=== PATIENT | female | born 1950 ===

== ENCOUNTER 2025-06-06 10:18 | Outpatient (AMB) | payer MEDICARE, SELFPAY ==
[2025-06-06 10:30] VITALS: BP 118/60; PULSE 74; O2SAT 98
--- NOTE | 2025-06-06 10:30 | A.OFFVIS_ITS ---
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: No Accompanied by: Spouse Allergies No Known Allergies Allergy (Verified 06/06/25 10:30) Medication List - Last Reconciled 06/18/25 by Mariana Duval MD alendronate 70 mg PO QWEEK apixaban (Eliquis) 5 mg PO BID cholecalciferol (vitamin D3) 25 mcg PO DAILY digoxin 125 mcg PO DAILY diltiazem HCl ER (Tiadylt ER) 300 mg PO DAILY fluticasone propionate 50 mcg/actuation 1 spray intranasal BID PRN mecobalamin (vitamin B12) 1,000 mcg PO DAILY nitroglycerin 0.4 mg sublingual Q5M PRN nystatin (Nystop) topical TID rosuvastatin 10 mg PO BEDTIME sertraline 100 mg PO DAILY HPI Comments Details: 74y/o female comes for evaluation of tremors and leg weakness. Tremors- started 1 year ago , bilateral hands , more at rest posture.stress worsens the tremors. no change in voice , no head tremors Leg weakness- progressively since 2018 - she was in a cruise and had difficulty walking , in the hospital diagnosed with Atrial fibrillation. she has lumbar spinal stenosis - surgery was in 2019 prior to COVID. she has numbness in her feet.EMG - 2023 - inconclusive because of leg swelling she also ahs chronic lymphedema in her legs . [facility] Medical History (Updated 06/18/25 @ 10:23 by Mariana Duval MD) Coarse tremors H/O coronary angiogram UTI (urinary tract infection) due to Enterococcus Urge incontinence Thrombocytopathia Subclinical hyperthyroidism Spinal stenosis Sacroiliac pain Shingles Right knee pain Prediabetes Postmenopausal vaginal bleeding Orthostatic hypotension Osteopenia HILDA (obstructive sleep apnea) Obesity, class 1 Lichen planus Hypercholesteremia GERD (gastroesophageal reflux disease) Fall at home Dyspnea on exertion Diastolic heart failure Depressive disorder COVID Claudication CKD (chronic kidney disease) Cellulitis Benign hypertension Afib Surgical History Hx of laparoscopic gastric banding Hx of cholecystectomy History of hysteroscopy History of knee replacement S/P cervical disc replacement Family History Mother CHF (congestive heart failure) Heart disease History of heart attack HTN (hypertension) Father Cancer, colon History of heart attack Heart disease Social History Alcohol intake: current Patient Tobacco Use Status: Never used Tobacco Physical Exam Vital Signs: Last Vital Signs Pulse 74 06/06/25 10:30 BP 118/60 06/06/25 10:30 Pulse Ox 98 06/06/25 10:30 Oxygen Delivery Method Room Air 06/06/25 10:30 Const General: cooperative, comfortable and no acute distress Nutritional Appearance: obese Orientation/consciousness: patient oriented x3 Eyes Pupils: Equal, round and reactive pupils present Neuro Other: vandana LE swelling ANtalgic gait intremittent vandana postural tremors and action tremor s Mild decreased FFM and foot taps General: patient oriented x3, tone normal, moves all extremities and no focal motor deficits Cranial nerves: Yes Facial sensation intact/muscles of mastication intact, Yes Equal, round and reactive pupils present, Yes Bilaterally intact EOM present, Yes Nystagmus not present, Yes Normal facial strength present, Yes Midline tongue present, Yes Symmetric palate elevation present and Yes Ability to bilaterally elevate shoulders present Cognition (Neuro): normal cognition Gait exam (Neuro): Antalgic gait present Motor exam (neuro): 5/5 motor strength present throughout Deep tendon reflexes (DTR's): Right triceps reflex intensity grade: 1+, Left triceps reflex intensity grade: 1+, Rt Biceps (C5, C6): 1+, Left biceps reflex intensity grade: 1+, Right brachioradialis reflex intensity grade: 1+, Left brachioradialis reflex intensity grade: 1+, Right patellar reflex intensity grade: 1+ and Left patellar reflex intensity grade: 1+ Coordination: [id number] test normal Assessment & Plan Assessment & Plan (1) Coarse tremors: Comment: Intremittent , exaggerated physiological tremors Code(s): G25.2 - Other specified forms of tremor Category: Medical Plan No evidence of Parkinsons on todays eval No need for medications I will follow her up clincially EMG rpeort form [facility] for rveiew. Coding Level of Care Code New Pt Level 4 (02921) Diagnoses Coarse tremors G25.2
--- OUTSIDE RECORDS SUMMARY | 2025-06-06 10:56 | XMS_ITS | Clinical Summary ---
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 Name Role Phone Unavailable Primary Care Provider Unavailabl e Social History Tobacco Use Types Packs/Day Years Used Date Smoking Tobacco: Never Assessed Comments Unknown Sex and Gender Information Value Date Recorded Sex Assigned at Not on file Legal Sex Female 2:52 PM EST Gender Identity Not on file Sexual Orientation Not on file Plan of Treatment Health Maintenance Due Date Last Done Comments DTaP,Tdap,and Td Vaccines (1 - Tdap) 1967 Pneumococcal Vaccine: 50+ Ye ars (1 of 1 - PCV) 1998 Zoster Vaccines (1 of 2) 1998 RSV Immunization Adult Patie nts (1 - 1-dose 75+ series) 2023 COVID-19 Vaccine (1 - 2023-2 5 season) 2024 Falls Risk Assessment 09/21/2024 Hepatitis C Screening 09/21/2024 Osteoporosis Screening (Bone Density Screening) 09/21/2024 Social Influencers of Health Screening 09/21/2024 Depression Screening 11/01/2024 Influenza Vaccine (#1) 2025 HIB Vaccines Aged Out No longer eligi ble based on patient's age to complete this topic HPV Vaccines Aged Out No longer eligi ble based on patient's age to complete this topic Hepatitis A Vaccines Aged Out No long er eligible based on patient's age to complete this topic Hepatitis B Vaccines Aged Out No long er eligible based on patient's age to complete this topic IPV Vaccines Aged Out No longer eligi ble based on patient's age to complete this topic MMR Vaccines Aged Out No longer eligi ble based on patient's age to complete this topic Meningococcal ACWY Vaccine Aged Out N o longer eligible based on patient's age to complete this topic Meningococcal B Vaccine Aged Out No l onger eligible based on patient's age to complete this topic RSV Immunization Patients Un starr 20 months Aged Out No longer eligible b ased on patient's age to complete this topic Varicella Vaccines Aged Out No longer eligible based on patient's age to complete this topic
== END 2025-06-06 11:29 | disposition home or self-care (01) ==
PROVIDERS: PCP Internal Medicine; Visit Provider Psychiatry & Neurology Neurology
DX: G25.2 Other specified forms of tremor (principal)
CPT/HCPCS: 99204

== ENCOUNTER → 2025-06-06 10:18 | Outpatient (BNVA) | payer MEDICARE, SELFPAY | PROVIDERS: PCP Internal Medicine; Visit Provider Psychiatry & Neurology Neurology | DX: G25.2 Other specified forms of tremor (principal); Z79.01 Long term (current) use of anticoagulants; Z79.899 Other long term (current) drug therapy | CPT/HCPCS: 99202 ==